=== PATIENT | female | born 1980 | race Caucasian/White ===

== ENCOUNTER → 2023-12-16 06:41 | Outpatient (CLI) | payer OTHER, SELFPAY ==
--- NOTE | 2023-12-16 06:42 | DI.US.S_ITS ---
PROCEDURE: US PELVIC COMPLETE INDICATIONS: Possible enlarged uterus TECHNIQUE: Real-time scanning was performed of the pelvic organs, with image documentation. Additional endovaginal scanning was necessary due to incomplete visualization of the adnexal and endometrial structures by transabdominal scanning. COMPARISON: None. FINDINGS: Uterus: Uterus is anteverted and normal in size at an 8 x 4 x 5.6 cm. The myometrium is homogeneous. The endometrium measures 6.7 mm combined thickness. Nabothian cysts, benign. Cervix and vagina are otherwise within normal limits. Ovaries: The right ovary measures 1.6 x 3 x 1.5 cm, with a calculated ovarian volume of 4 cc. The left ovary measures 2.4 x 4.4 x 1.9 cm, with a calculated ovarian volume of 10.6 cc. Left ovarian anechoic simple cyst measuring 2.4 x 2.1 x 2.6 cm. Less than 12 follicles can be seen in each ovary. No adnexal masses are seen. Other: No pathologic free abdominal or pelvic fluid. IMPRESSION: 1. Uterus is normal in size with endometrial thickness of 6.7 mm. 2. Left ovarian anechoic simple cyst measuring 2.4 x 2.1 x 2.6 cm. We strive to produce accurate, complete, and clear reports of imaging services. To assist us in improving patient care, this report was composed using standard report templates and voice recognition software. Therefore, it may contain abnormal punctuation, insertions and/or omissions. Occasional wrong-word or sound-alike substitutions may occur. Though we review the report and make efforts to correct it, we do recommend that the report be read carefully in proper context to recognize any text inaccuracies. Dictated by: Kami Connors M.D. on 12/16/2023 at 17:10 Approved by: Kami Connors M.D. on 12/16/2023 at 17:11
== END ==
PROVIDERS: PCP Registered Nurse Diabetes Educator; Referring Provider Physician Assistant; Visit Provider Physician Assistant
DX: N85.2 Hypertrophy of uterus (principal); N83.292 Other ovarian cyst, left side
CPT/HCPCS: 76830; 76856

== ENCOUNTER → 2024-03-19 13:50 | Outpatient (CLI) | payer OTHER, SELFPAY ==
[2024-03-19 14:59] LABS: Appearance Urine UA CLOUDY; Bilirubin Urine UA 1+ (NEGATIVE); Color Urine UA BROWN; Glucose Urine UA NEGATIVE (Negative); Ketones Urine UA NEGATIVE (NEGATIVE); Leukocyte Esterase Urine UA NEGATIVE (NEGATIVE); Nitrite Urine UA NEGATIVE (Negative); Occult Blood Urine UA 3+ (Negative); Protein Urine UA 1+ (Negative); Specific Gravity Urine UA >=1.030 (1.000-1.035)
[2024-03-19 15:05] LABS: Hematocrit 40.6 % (36-46); Hemoglobin 13.8 g/dL (12.0-16.0); Mean Corpuscular HGB Conc 34.1 % (30-36); Mean Corpuscular Hemoglobin 30.1 PG (26-34); Mean Corpuscular Volume 88.4 fL (80-100); Platelet Count 259 X10^3/uL (150-400); Red Blood Cell Count 4.59 X10^6/uL (4.0-5.2); White Blood Cell Count 6.9 X10^3/uL (4.5-11.0)
[2024-03-19 15:11] LABS: Bacteria Urine Occasional (0-1); Culture Indicated Urine Cult Not Indicated; Ictotest Urine Negative (Negative); RBC Urine >100/HPF (0-5/HPF); Squamous Epithelial Cell Urine 0-1 /HPF (0-5/HPF); Urine Volume 10mL (spun); WBC Urine 0-1/HPF (0-5/HPF)
[2024-03-19 15:33] LABS: Alanine Aminotransferase 24 IU/L (<35); Albumin 3.9 g/dL (3.5-5.0); Albumin Globulin Ratio 1.3 (1.0-2.8); Alkaline Phosphatase 101 U/L (38-126); Aspartate Aminotransferase 23 IU/L (14-36); BUN Creatinine Ratio 14.3 (6-22); Bilirubin Total 0.6 mg/dL (0.2-1.3); Blood Urea Nitrogen 11 mg/dL (7-17); Calcium 8.9 mg/dL (8.4-10.2); Carbon Dioxide 23 mmol/L (22-32); Chloride 107 mmol/L (98-107); Cholesterol 186 mg/dL (140-199); Estimated Glomerular Filt Rate > 60 mL/min (>60); Globulin 3.1 g/dL (1.7-4.1); Glucose 90 mg/dL (70-100); HDL Cholesterol 38 mg/dL (40-60); HEMOLYSIS < 15 (0-50); LDL Cholesterol Calculated 125 mg/dL (<100); Lipase 114 U/L (23-300); Potassium 4.1 mmol/L (3.4-5.1); Sodium 139 mmol/L (137-145); Triglycerides 113 mg/dL (35-150)
[2024-03-19 15:48] LABS: Vitamin D 25 Hydroxy (D3) 29.7 ng/mL (30.0-100.0)
[2024-03-19 16:57] LABS: Thyroid Stimulating Hormone 1.18 uIU/mL (0.47-4.68)
== END ==
LOC: LAB 13:51
PROVIDERS: PCP Registered Nurse Diabetes Educator; Referring Provider Registered Nurse Diabetes Educator; Visit Provider Registered Nurse Diabetes Educator
DX: F41.9 Anxiety disorder, unspecified (principal); F32.A Depression, unspecified; K21.9 Gastro-esophageal reflux disease without esophagitis; R10.9 Unspecified abdominal pain; Z00.00 Encounter for general adult medical examination without abnormal findings
CPT/HCPCS: 36415; 80053; 80061; 81001; 82306; 82784; 83516; 83690; 84439; 84443; 85027

== ENCOUNTER → 2024-03-30 08:42 | Outpatient (CLI) | payer OTHER, SELFPAY ==
[2024-03-30 09:51] LABS: Appearance Urine UA CLEAR; Bilirubin Urine UA NEGATIVE (NEGATIVE); Color Urine UA YELLOW; Glucose Urine UA NEGATIVE (Negative); Ketones Urine UA NEGATIVE (NEGATIVE); Leukocyte Esterase Urine UA NEGATIVE (NEGATIVE); Nitrite Urine UA NEGATIVE (Negative); Occult Blood Urine UA NEGATIVE (Negative); Protein Urine UA NEGATIVE (Negative); Specific Gravity Urine UA <=1.005 (1.000-1.035); Urobilinogen Urine UA 0.2 E.U./dL (0.2)
[2024-03-30 10:00] LABS: Bacteria Urine Occasional (0-1); RBC Urine 1-5/HPF (0-5/HPF); Squamous Epithelial Cell Urine 5-10 /HPF (0-5/HPF); Urine Volume 10mL (spun); WBC Urine 1-5/HPF (0-5/HPF)
[2024-03-30 10:01] LABS: Culture Indicated Urine Cult Not Indicated; Mucus Urine 2+ (Negative)
[2024-03-31 18:36] LABS: Interpretation Negative (Negative)
== END ==
PROVIDERS: PCP Registered Nurse Diabetes Educator; Referring Provider Registered Nurse Diabetes Educator; Visit Provider Registered Nurse Diabetes Educator
DX: Z00.00 Encounter for general adult medical examination without abnormal findings (principal); F41.9 Anxiety disorder, unspecified; F32.A Depression, unspecified; K21.9 Gastro-esophageal reflux disease without esophagitis; R10.9 Unspecified abdominal pain; R31.29 Other microscopic hematuria
CPT/HCPCS: 81001; 83013

== ENCOUNTER → 2024-04-12 08:02 | Outpatient (CLI) | payer OTHER, SELFPAY ==
--- NOTE | 2024-04-12 08:03 | DI.ECHO.S_ITS ---
[facility]+ [facility] : : [address] : : [place] : : [id number] : : Phone: [phone] Echocardiogram Report + + :Name: XIN SINGH Study Date: 04/12/2024 Height: 70 in : :[facility] ReadingLocation: Weight: 268 lb : : Gender: Female BSA: 2.4 m2 : :: 1980 Age: 43 yrs BP: 127/80 mmHg: :Reason For Study: HIGH RISK SCREEN FOR THORACIC AORTIC : :ANEURYSM : :Ordering Physician: TYLOR : :PAVEL Performed By: Loraine Kraus : :Referring: PAVEL SNIDER : + + Interpretation Summary The left ventricle is normal in size and wall thickness. The left ventricular ejection fraction is normal. The ejection fraction is estimated to be 60-65%. The right ventricle is normal in size and function. There is prolapse of the anterior mitral valve leaflet. There is prolapse of the posterior mitral valve leaflet(s). There is mild mitral valve prolapse. There is mild to moderate mitral annular calcification. The mitral valve chordae are thickened and/or calcified. There is likely at least moderate mitral regurgitation. Eccentric jet. No systolic reversal of pulmonary vein. There is mild tricuspid regurgitation. The IVC is of normal diameter and collapses greater than 50% with a sniff. This suggests a low right atrial pressure of 3 mm Hg. The dimensions of the ascending aorta are normal. The aortic arch is normal in size. Procedure: A two-dimensional transthoracic echocardiogram with color flow and Doppler was performed. The study quality was technically adequate. There is no prior echocardiogram noted for this patient. The patient was in sinus rhythm with heart rates between 58-76 bpm during the exam. Left Ventricle: The left ventricle is normal in size and wall thickness. There is no thrombus. The ejection fraction is estimated to be 60-65%. The left ventricular ejection fraction is normal. There are no focal wall motion abnormalities. MV E/A: 1.0 Med Peak E' Irvin: 6.0 cm/sec E/E' med: 14.5. Right Ventricle: The right ventricle is normal in size and function. Atria: The left atrial size is normal. Right atrial size is normal. There is no Doppler evidence for an interatrial shunt. Mitral Valve: There is mild to moderate mitral annular calcification. The mitral valve leaflets are mildly calcified. The mitral valve chordae are thickened and/or calcified. There is prolapse of the posterior mitral valve leaflet(s). There is prolapse of the anterior mitral valve leaflet. There is mild mitral valve prolapse. The mitral regurgitant jet is eccentrically directed. There is likely at least moderate mitral regurgitation. Eccentric jet. Aortic Valve: The aortic valve is trileaflet. The aortic valve opens well. There is no aortic valve stenosis. No aortic regurgitation is present. Tricuspid Valve: The tricuspid valve leaflets are thin and pliable. There is mild tricuspid regurgitation. Pulmonary artery pressures cannot be estimated because of the lack of a measurable TR jet velocity. Pulmonic Valve: The pulmonic valve leaflets are thin and pliable; valve motion is normal. There is a trace or physiologic amount of pulmonic regurgitation. Great Vessels: The aortic root is normal size. The dimensions of the ascending aorta are normal. The aortic arch is normal in size. The IVC is of normal diameter and collapses greater than 50% with a sniff. This suggests a low right atrial pressure of 3 mm Hg. Pericardium/ Pleura There is no pericardial effusion. There is no pleural effusion. MMode/2D Measurements & Calculations LVIDd: 5.0 cm LVOT diam: 2.1 cm LVIDs: 3.3 cm Ao root diam: 3.7 cm FS: 33.4 % asc Aorta Diam: 3.2 cm IVSd: 0.79 cm Ao Arch Diam (Prox Trans): 2.9 cm LVPWd: 0.98 cm LV baird. diameter/BSA (cm/m^2): 2.1 LV sys. diameter/BSA (cm/m^2): 1.4 LA A2 area: 21.2 cm2 RA long axis: 5.1 cm LA A4 area: 23.1 cm2 RA area: 18.5 cm2 LA length (vol): 5.9 cm RA vol: 57.3 ml LA vol: 70.2 ml RA : 24.3 ml/m2 LA vol index: 29.7 ml/m2 IVC diam: 1.4 cm RVD1 (basal): 3.9 cm RVD2 (mid): 3.1 cm TAPSE: 2.1 cm Doppler Measurements & Calculations Ao V2 max: 118.8 cm/sec LVOT Max Irvin: 86.5 cm/sec Ao V2 mean: 88.5 cm/sec LV V1 max P.0 mmHg Ao max P.7 mmHg LV V1 VTI: 20.6 cm Ao mean P.4 mmHg JAIRO(I,D): 2.7 cm2 Ao V2 VTI: 25.7 cm JAIRO(V,D): 2.5 cm2 sev ratio: 0.80 JAIRO indexed to BSA (cm^2/m^2): 1.2 MV E max irvin: 87.4 cm/sec PA V2 max: 80.4 cm/sec MV A max irvin: 84.9 cm/sec PA V2 mean: 56.7 cm/sec MV E/A: 1.0 PA mean P.4 mmHg Med Peak E' Irvin: 6.0 cm/sec PA pr(Accel): 31.0 mmHg E/E' med: 14.5 Lat Peak E' Irvin: 8.1 cm/sec E/E' lat: 10.9 E/e' average: 12.7 MV dec time: 0.23 sec SV(LVOT): 70.5 ml Reading Physician:11:27 AM
== END ==
PROVIDERS: PCP Registered Nurse Diabetes Educator; Referring Provider Registered Nurse Diabetes Educator; Visit Provider Registered Nurse Diabetes Educator
DX: I08.1 Rheumatic disorders of both mitral and tricuspid valves (principal); Z82.49 Family history of ischemic heart disease and other diseases of the circulatory system
CPT/HCPCS: 93306

== ENCOUNTER → 2024-04-14 08:27 | Outpatient (CLI) | payer OTHER, SELFPAY ==
--- NOTE | 2024-04-14 08:28 | DI.MG.S_ITS ---
BILATERAL DIGITAL SCREENING MAMMOGRAM 3D/2D WITH CAD: 04/14/2024 CLINICAL: Routine screening. Family history of breast cancer. No prior exams were available for comparison. There are scattered areas of fibroglandular density (category b / 25%-50% glandular tissue). Current study was also evaluated with a Computer Aided Detection (CAD) system. There is a focal asymmetry in the right breast central to the nipple anterior depth. There is a focal asymmetry in the left breast at 4 o'clock middle depth. No other significant masses or calcifications are seen in either breast. IMPRESSION: INCOMPLETE: NEED ADDITIONAL IMAGING EVALUATION The focal asymmetry in the right breast central to the nipple anterior depth is indeterminate. Additional views with possible ultrasound are recommended. The focal asymmetry in the left breast at 4 o'clock middle depth is indeterminate. Additional views with possible ultrasound are recommended. Based on the Tyrer Cuzick model (a risk assessment model) the patient's lifetime risk is 14.7% and her 10 year risk is 2.6%. According to the ACR, ACS, and NCCN guidelines, an annual breast MRI exam along with mammogram is recommended if the patient's lifetime risk is 20% or greater. This exam was interpreted at Station ID: [id number]. NOTE: For mammograms, a report in lay terms will be sent to the patient. Approximately 15% of breast malignancies will not be visualized mammographically. In the management of a palpable breast mass, a negative mammogram must not discourage biopsy of a clinically suspicious lesion. Electronically Signed By: Meek chun/gabby:04/20/2024 15:21:02 letter sent: Additional Imaging Needed ACR BI-RADS Category 0: Incomplete: Need Additional Imaging Evaluation
== END ==
LOC: MAMMO 08:27
PROVIDERS: PCP Registered Nurse Diabetes Educator; Referring Provider Registered Nurse Diabetes Educator; Visit Provider Registered Nurse Diabetes Educator
DX: Z12.31 Encounter for screening mammogram for malignant neoplasm of breast (principal); Z80.3 Family history of malignant neoplasm of breast
CPT/HCPCS: 77063; 77067

== ENCOUNTER → 2024-05-25 10:10 | Outpatient (CLI) | payer OTHER, SELFPAY ==
--- NOTE | 2024-05-25 10:14 | DI.MG.S_ITS ---
BILATERAL DIGITAL DIAGNOSTIC MAMMOGRAM 3D/2D WITH ADDITIONAL VIEWS: 05/25/2024 CLINICAL: Bilateral Add views. Comparison is made to exam dated: 04/14/2024 mammogram - [facility]. There are scattered areas of fibroglandular density (category b / 25%-50% glandular tissue). There is an oval focal asymmetry in the right breast central to the nipple anterior depth. There is an oval focal asymmetry in the left breast at 4 o'clock middle depth. No other significant masses or calcifications are seen in either breast. IMPRESSION: INCOMPLETE: NEED ADDITIONAL IMAGING EVALUATION The oval focal asymmetry in the right breast central to the nipple anterior depth resembles a cyst and is indeterminate. The oval focal asymmetry in the left breast at 4 o'clock middle depth resembles a cyst and is indeterminate. A targeted ultrasounds are recommended and will immediately follow. Based on the Tyrer Cuzick model (a risk assessment model) the patient's lifetime risk is 14.7% and her 10 year risk is 2.6%. According to the ACR, ACS, and NCCN guidelines, an annual breast MRI exam along with mammogram is recommended if the patient's lifetime risk is 20% or greater. This exam was interpreted at Station ID: [id number]. NOTE: For mammograms, a report in lay terms will be sent to the patient. Approximately 15% of breast malignancies will not be visualized mammographically. In the management of a palpable breast mass, a negative mammogram must not discourage biopsy of a clinically suspicious lesion. Electronically Signed By: Zain Kruse M.D. slc/:05/25/2024 11:05:00 Entry: - 05/26/2024 13:59:10 letter sent: Additional Imaging Needed ACR BI-RADS Category 0: Incomplete: Need Additional Imaging Evaluation
--- NOTE | 2024-05-25 10:14 | DI.US.S_ITS ---
LIMITED ULTRASOUND OF RIGHT BREAST AND AXILLA: 05/25/2024 CLINICAL: Patient returns today to evaluate a focal asymmetry in the right breast. Comparison is made to exams dated: 05/25/2024 mammogram and 04/14/2024 mammogram - [facility]. Color flow and real-time ultrasound of the right breast 6 o'clock, and axilla regions were performed. De León scale images of the real-time examination were reviewed. There is a benign 0.4 cm x 0.4 cm x 0.4 cm oval simple cyst in the right breast at 6 o'clock anterior depth 3 cm from the nipple. This oval simple cyst is anechoic. This correlates with mammography findings. Color flow imaging demonstrates that there is no vascularity present. No significant abnormalities were seen sonographically in the right breast or the right axilla. IMPRESSION: BENIGN There is no sonographic evidence of malignancy. The 0.4 cm simple cyst in the right breast is benign. Exam findings were conveyed to the patient. A 1 year screening mammogram is recommended. This exam was interpreted at Station ID: [id number]. Electronically Signed By: Zain Kruse M.D. slc/:05/25/2024 11:38:09 letter sent: Normal Exam ACR BI-RADS Category 2: Benign
--- NOTE | 2024-05-25 10:14 | DI.US.S_ITS ---
LIMITED ULTRASOUND OF LEFT BREAST AND AXILLA: 05/25/2024 CLINICAL: Patient returns today to evaluate a focal asymmetry in the left breast. Comparison is made to exams dated: 05/25/2024 mammogram and 04/14/2024 mammogram - [facility]. Color flow and real-time ultrasound of the left breast 4 o'clock, and axilla regions were performed. De León scale images of the real-time examination were reviewed. There is a benign 0.5 cm x 0.4 cm x 0.4 cm oval simple cyst in the left breast at 4 o'clock middle depth 4 cm from the nipple. This oval simple cyst is anechoic. This correlates with mammography findings. Color flow imaging demonstrates that there is no vascularity present. No enlarged left axillary lymph nodes. IMPRESSION: BENIGN There is no sonographic evidence of malignancy. The 0.5 cm simple cyst in the left breast is benign. Exam findings were conveyed to the patient. A 1 year screening mammogram is recommended. This exam was interpreted at Station ID: [id number]. Electronically Signed By: Zain Kruse M.D. slc/:05/25/2024 11:39:37 letter sent: Normal Exam ACR BI-RADS Category 2: Benign
== END ==
LOC: MAMMO 10:13
PROVIDERS: PCP Registered Nurse Diabetes Educator; Referring Provider Registered Nurse Diabetes Educator; Visit Provider Registered Nurse Diabetes Educator
DX: R92.8 Other abnormal and inconclusive findings on diagnostic imaging of breast (principal); N60.01 Solitary cyst of right breast; N60.02 Solitary cyst of left breast
CPT/HCPCS: 76642; 77066; G0279